=== PATIENT | female | born 1970 | race Caucasian/White ===

== ENCOUNTER 2018-02-19 11:14 | Emergency (ER) | payer SELFPAY ==
[2018-02-19 11:18] VITALS: BP 123/80; PULSE 85; RESP 18; TEMP 36.8; O2SAT 100
--- NOTE | 2018-02-19 11:38 | ED.GENADUL_ITS ---
Disposition Clinical Impression: Chronic sore throat Disposition: HOME Condition: Fair Instructions: Pharyngitis (ED), Allergies (ED) Additional Instructions: Encourage hydration. Tylenol and/or ibuprofen as needed for discomfort. Please try an [id number] daily antihistamine as I am concerned that this may be allergy driven. May try Claritin or Bharti. 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 If you develop new or worsening symptoms please seek care urgently once again. Referrals: Primary Care Provider [Outside] Medical Decision Making - Medical Decision Making Patient presents today with chief complaint of sore throat times 1 year. Patient reports that she attempted to see an ENT specialist this morning. Was observed to find out that she needs a referral. She does not have a primary care. Also attempted to see a primary care this morning but again, was unable to get a walk-in appointment for a new patient. On exam, she is noted to have some cobblestoning. She did report that she has had some rhinorrhea, particular in the morning. I did discuss that this may be allergy driven. I advised that she try [id number] antihistamine daily to help with symptomatic management. We discussed the expected course with this, I advised that this would not help immediately. Patient seems slightly upset that there is no immediate intervention to help with her symptom medic management. She also voices that her cousin had a mass in her throat. I have referred the patient to ENT given the chronicity of her symptoms for further evaluation. At this point, I do not see any acute abnormality, no evidence of infection, no trismus, uvula is midline. At this point, I do not feel that emergent imaging is necessary. We discussed [id number] and home remedies that may help with symptomatic management. I encouraged hydration. Advised that she should seek care urgently once again with any new or worsening symptoms. All of her questions and concerns were addressed and she is in agreement with this plan. History of Present Illness - General Chief complaint: Sorethroat Stated complaint: SORE THROAT Time Seen by Provider: 02/19/18 11:36 Source: patient, RN notes reviewed Mode of arrival: ambulatory Limitations: no limitations - History of Present Illness Initial comments: Patient is a 48-year-old female, otherwise healthy, with chief complaint of sore throat times 1 year. Reports that she has had sore throat stone in my throat. She denies any difficulty swallowing. Reports that she tried to evaluate her throat this morning and felt that the area was more white than she had expected. Is concerned that she has a bump on her right tonsil. States that she can have rhinorrhea, particularly in the morning. She has applied iodine to the area intermittently over the past year with no improvement of her symptoms. - Related Data Unknown [No Known Home Meds] 02/19/18 Allergies Allergy/AdvReac Type Severity Reaction Status Date / Time No Known Allergies Allergy Unverified 02/19/18 11:24 Review of Systems Constitutional: no symptoms reported. denies: chills, fever Eyes: denies: eye pain ENT: as per HPI, throat pain. denies: ear pain Respiratory: no symptoms reported. denies: cough, shortness of breath Skin: denies: rash, lesions Neurological: denies: headache Past Medical History - Past Medical History Medical history: no medical history Surgical history: no surgical history General Exam - General Limitations: no limitations General appearance: alert, in no apparent distress - Head Head exam: Present: atraumatic - Eye Eye exam: Present: normal apperance - ENT ENT exam: Present: normal exam (Patient is noted to have some cobblestoning in the oropharynx. No erythema. Tonsils are swollen. Uvula is midline. No trismus. No masses noted. I am unable to appreciate this bump that the patient noted on her right tonsil. Oropharynx is otherwise unremarkable.), normal orophraynx, mucous membranes moist, TM's normal bilaterally, normal external ear exam - Neck Neck exam: Present: normal inspection. Absent: tenderness, lymphadenopathy, thyromegaly - Respiratory Respiratory exam: Present: normal lung sounds bilaterally. Absent: respiratory distress - Cardiovascular Cardiovascular Exam: Present: regular rate, normal rhythm, normal heart sounds - Neurological Exam Neurological exam: Present: alert, normal gait - Psychiatric Psychiatric exam: Present: normal affect, anxious - Skin Skin exam: Present: warm, dry, normal color Course Vital Signs - 24 hr 02/19/18 11:18 Temperature 36.8 C Pulse 85 Respiratory 18 Rate Blood Pressure 123/80 Pulse Oximetry 100
--- NOTE | 2018-02-19 15:23 | PDOC.ERCMPRO ---
Care Management Progress Note 02/19-Mai SERRANO requested assistance with establishing a PCP ([employer] specialist). Patient does not need PCP f/u from this ED visit. Mai SERRANO would like an ENT f/u in two weeks for chronic sore throat. Referral and face sheet faxed to [facility] today. Referral faxed to ENT today.
--- NOTE | 2018-02-19 15:25 | CMPROGNOTE_ITS ---
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 Patient does not need PCP f/u from this ED visit. Mai SERRANO would like an ENT f/ u in two weeks for chronic sore throat. Referral and face sheet faxed to [facility] today. Referral faxed to ENT today.
== END 2018-02-19 12:00 | disposition home or self-care (01) ==
PROVIDERS: Emergency Provider Student in an Organized Health Care Education/Training Program
DX: J02.9 Acute pharyngitis, unspecified (principal); G89.29 Other chronic pain
CPT/HCPCS: 99282

== ENCOUNTER 2020-06-08 10:49 | Emergency (ER) | payer MEDICAID, SELFPAY ==
[2020-06-08 10:53] VITALS: BP 124/80; PULSE 84; RESP 16; TEMP 36.4; O2SAT 100
--- NOTE | 2020-06-08 11:10 | W.ED.GENAD ---
Discharge Plan Disposition Patient Disposition: HOME Condition: Stable Discharge Details Clinical Impression: Tick bite of back Primary Care Provider: Allyssa,Local ED Provider: Peter Ojeda Home Meds and New Rx's Prescriptions: No Action No Known Home Meds RF: 0 Discharge Instructions Instructions: Tick Bite (ED) Additional Instructions: You were given a dose of doxycycline 200 mg today in the emergency department. Please contact your primary care physician to arrange follow-up. Return to the ER for any worsening or new concerning symptoms. Medical Decision Making 40-year-old female here with tick bite left upper back. Unsure as to type of tick. No erythema migrans. Plan to treat with single dose of doxycycline 200 mg p.o. prophylactically. I discussed strategies for preventing tick bites in the future. Usual customary discharge instructions reviewed with patient. HPI General Mode of arrival: ambulatory. Date/Time Provider Initiated Documentation: 06/08/20 11:00. Limitations to Documentation: no limitations. Information obtained by: patient. HPI Narrative: 50-year-old female presents with chief complaint of tick bite. Patient notes she pulled a tick off of her left upper back yesterday. She is unsure of the type of tick. She notes [place]. She denies fever. No rash or joint aches. No other recent tick bites. Related Data Home Medications Medication Instructions Recorded Confirmed Unknown [No Known Home Meds] 02/19/18 06/08/20 Allergies Allergy/AdvReac Type Severity Reaction Status Date / Time No Known Allergies Allergy Unverified 06/08/20 10:57 General Stated Complaint: RashLesion BRENDEN: 4 Review of Systems Constitutional Constitutional: Denies fever(s) Integumentary/Breasts Skin/Breast: Reports as per HPI [facility] Social History Smoking/Tobacco Use Status: Never Smoking risk assessment performed?: Yes Alcohol Intake: never Drug use: Never Do you feel safe in your relationship?: Yes Exam Const General: cooperative and no acute distress HENMT Mouth: moist mucous membranes Eyes Conjunctivae: normal conjunctivae Sclera: normal sclerae Skin Lesions: lesion noted (left shoulder 2mm bite with no surrounding erythema, no fluctuance, no fb) Neuro General: patient alert, patient awake and tone normal Course Vital Signs Vital signs: Vital Signs Temperature 36.4 C L 06/08/20 10:53 Pulse 84 06/08/20 10:53 Respiratory Rate 16 06/08/20 10:53 Blood Pressure 124/80 06/08/20 10:53 Pulse Oximetry 100 06/08/20 10:53 Temperature 36.4 C L 06/08/20 10:53 Temperature Source Skin 06/08/20 10:53 Pulse 84 06/08/20 10:53 Respiratory Rate 16 06/08/20 10:53 Respiratory Effort Non-Labored 06/08/20 10:53 Blood Pressure 124/80 06/08/20 10:53 Blood Pressure Position Sitting 06/08/20 10:53 Pulse Oximetry 100 06/08/20 10:53 Oxygen Delivery Method Room Air 06/08/20 10:53 Oxygen Flow Rate 0 06/08/20 10:53 Pain Level 0 06/08/20 10:53
[2020-06-08] MEDS: Doxycycline Hyclate 100 MG CAP 200 MG PO (11:12)
== END 2020-06-08 11:20 | disposition home or self-care (01) ==
LOC: ER 11:19
PROVIDERS: Emergency Provider Student in an Organized Health Care Education/Training Program
DX: S20.472A Other superficial bite of left back wall of thorax, initial encounter (principal); W57.XXXA Bitten or stung by nonvenomous insect and other nonvenomous arthropods, initial encounter
CPT/HCPCS: 99283

== ENCOUNTER 2022-02-16 15:26 | Outpatient (REF) | payer BC, MEDICAID, SELFPAY ==
[2022-02-18 10:22] LABS: COVID-19 RT-PCR UVMMC Result Negative (Negative)
== END 2022-02-16 15:27 | disposition home or self-care (01) ==
LOC: LBN 15:26
PROVIDERS: Visit Provider Physician Assistant Medical
DX: R05.8 Other specified cough (principal); J02.9 Acute pharyngitis, unspecified; Z20.822 Contact with and (suspected) exposure to COVID-19
CPT/HCPCS: U0003; 87070